=== PATIENT | female | born 1955 | race Caucasian/White ===

== ENCOUNTER → 2016-12-26 | Outpatient (CLI) | payer MEDICARE, OTHER ==
[~2016-12-26] MED LIST: AMBIEN 10MG10 MG PO; AVAPRO300 MG PO; AVINZA30 M1 PO; B COMPLEX1 TA2 PO; BASE, PCCA POLY1 FLA; BIOFLAX1000 MG PO; CATAPRES 0.1MG0.1 MG PO; COZAAR100 MG PO; ESTRACE PO; FOLIC ACID 11 MG/TA1 PO; KLONOPIN 0.5MG0.5 MG PO; LEVOTHYROXIN0.112 MG PO; LOPID 600M600 MG/TAB PO; LOPRESSOR 225 MG/TAB PO; LORTAB 5/500 501 TAB; MAGOX 400241.3 MG PO; MS CONTIN 115 MG/TAB PO; NASACORT AQ N16.5 GM NS; NORCO 325 MG-101 TAB PO; NYSTATIN 5500 MU/TAB PO; PHENERGAN 25 TA25 MG PO; PREDNISONE10 MG PO; PROAIR HFA0.09 MG/AC IH; UNABLE; VITAMIN D32000 I1 PO; ZYRTEC 10MG10 MG PO; [UNRECOGNIZED DRUG - REMARK]
== END ==
LOC: MC.RAD 11:39
DX: T85.49XA Other mechanical complication of breast prosthesis and implant, initial encounter (principal); R92.1 Mammographic calcification found on diagnostic imaging of breast

== ENCOUNTER → 2017-03-15 | Outpatient (CLI) | payer MEDICARE, OTHER | LOC: MHCPAIN 12:00 | DX: G89.29 Other chronic pain (principal); M47.814 Spondylosis without myelopathy or radiculopathy, thoracic region; M54.16 Radiculopathy, lumbar region | CPT/HCPCS: G0463 ==

== ENCOUNTER → 2017-07-03 | Outpatient (CLI) | payer MEDICARE, OTHER | LOC: MC.RAD 13:00 | DX: T85.49XA Other mechanical complication of breast prosthesis and implant, initial encounter (principal); Z90.12 Acquired absence of left breast and nipple; Z98.82 Breast implant status ==

== ENCOUNTER → 2020-05-22 | Outpatient (CLI) | payer MEDICARE, OTHER | LOC: COL.RAD 09:00 | DX: R10.84 Generalized abdominal pain (principal); R93.89 Abnormal findings on diagnostic imaging of other specified body structures; Z90.49 Acquired absence of other specified parts of digestive tract ==

== ENCOUNTER 2020-06-19 08:39 | Day surgery (SDC) | payer MEDICARE ==
[2020-06-19] VITALS (8 sets, daily range): BP systolic 133–153; BP diastolic 73–88; PULSE 55–78; TEMP 96.9–97.6
[~2020-06-19] VITALS: Ht 162.6 cm; Wt 61.8 kg
[~2020-06-19 08:39] MED LIST changes: +B COMPLEX #11 TA1 PO; -B COMPLEX1 TA2 PO; +MAG-OX 400400 MG/TAB PO; -MAGOX 400241.3 MG PO; +MASON NATURAL2000 IU PO; -VITAMIN D32000 I1 PO
[2020-06-19] MEDS ORDERED: PLAVIX 75MG TAB75 MG PO (08:59)
[2020-06-19] MEDS ORDERED: LEVOXYL0.1 MG PO (09:25)
[2020-06-19] MEDS ORDERED: TOPROL XL 25MG25 MG PO (09:26)
[2020-06-19] MEDS ORDERED: AMBIEN 5MG TABLE5 MG PO (09:26)
[2020-06-19] MEDS ORDERED: CRESTOR5 MG PO (09:27)
[2020-06-19] MEDS ORDERED: REPATHA SU140 MG/1 M SQ (09:29)
--- NOTE | 2020-06-19 12:05 | NUR ---
Patient was received by Marquita Elder RN. VSS on room air.
--- NOTE | 2020-06-19 12:29 | NUR ---
Dr. Vilchis is at the bedside at this time.
--- NOTE | 2020-06-19 12:30 | NUR ---
Patient is resting comfortably in her room. She has some chronic pain in her extremities that Dr. Vilchis orders her home medications to help with. These are given to her. She also has mild epigastric pain, which Dr. Vilchis is made aware of. No nausea or other complaints. SHe is sipping water.
--- NOTE | 2020-06-19 12:40 | NUR ---
Patient ambulates to the restroom with steady gait. Voids and returns to room.
--- NOTE | 2020-06-19 13:00 | NUR ---
Patient is resting comfortably in room. She denies pain, nausea, or need.
--- NOTE | 2020-06-19 13:30 | NUR ---
Patient requests to walk. She ambulates up and down the hallway with staff. Her gait is steady. IVF are saline locked. She returns to her room.
--- NOTE | 2020-06-19 13:49 | NUR ---
The patient had some questions regarding procedure. Dr. Vilchis is notified and comes to the bedside to discuss with patient.
--- NOTE | 2020-06-19 14:00 | NUR ---
Patient ambulates to the restroom to void. She then walks the halls with staff. Returns to room and would like to change to her clothing. Given broth and stepan.
--- NOTE | 2020-06-19 14:35 | NUR ---
Report given to DAYAMI Juárez who assumes care at this time.
--- NOTE | 2020-06-19 15:00 | NUR ---
PATIENT TEXTING ON PHONE. REQUESTED TO GO HOME EARLY. PATIENT STATED " I FEEL FINE"
--- NOTE | 2020-06-19 15:15 | NUR ---
OK'D BY DR GTZ TO GO HOME EARLY. RECEIVED DISCHARGE INSTRUCTIONS AND VERBALIZED UNDERSTANDING. DISCONTINUED IV AND INT- CATHETER INTACT.
--- NOTE | 2020-06-19 15:35 | NUR ---
DISCHARGED PER WC BY NURSING STAFF TO PRIVATE CAR IN CARE OF [facility].
== END 2020-06-19 15:55 | disposition home or self-care (01) ==
LOC: SDCO 08:39
DX: K83.8 Other specified diseases of biliary tract (principal); K31.89 Other diseases of stomach and duodenum; R93.2 Abnormal findings on diagnostic imaging of liver and biliary tract; I25.10 Atherosclerotic heart disease of native coronary artery without angina pectoris; G43.909 Migraine, unspecified, not intractable, without status migrainosus; E78.00 Pure hypercholesterolemia, unspecified; I10 Essential (primary) hypertension; J45.909 Unspecified asthma, uncomplicated; K21.9 Gastro-esophageal reflux disease without esophagitis; G89.29 Other chronic pain; M19.90 Unspecified osteoarthritis, unspecified site; E03.9 Hypothyroidism, unspecified; R10.9 Unspecified abdominal pain; M79.7 Fibromyalgia; Z90.49 Acquired absence of other specified parts of digestive tract; Z79.82 Long term (current) use of aspirin; Z79.02 Long term (current) use of antithrombotics/antiplatelets; Z90.710 Acquired absence of both cervix and uterus; Z87.891 Personal history of nicotine dependence; Z86.711 Personal history of pulmonary embolism; Z20.828 Contact with and (suspected) exposure to other viral communicable diseases; Z95.5 Presence of coronary angioplasty implant and graft; Z88.6 Allergy status to analgesic agent; Z91.040 Latex allergy status; Z91.011 Allergy to milk products; Z88.5 Allergy status to narcotic agent
CPT/HCPCS: C1769; J2704; J7120; Q9967

== ENCOUNTER → 2020-07-30 | Outpatient (CLI) | payer MEDICARE ==
[~2020-07-30] MED LIST changes: +AMBIEN 5MG TABLE5 MG PO; +CRESTOR5 MG PO; +LEVOXYL0.1 MG PO; +PLAVIX 75MG TAB75 MG PO; +REPATHA SU140 MG/1 M SQ; +TOPROL XL 25MG25 MG PO
== END ==
LOC: MC.RAD 13:26
DX: Z12.31 Encounter for screening mammogram for malignant neoplasm of breast (principal)

== ENCOUNTER → 2021-03-22 | Outpatient (CLI) | payer MEDICARE ==
[2021-03-22 08:35] LABS: HEMOGLOBIN 13.8 g/dl (12.5-16.0); MEAN CELL VOLUME 92 fl (80.0-100.0); MEAN CORPUSCULAR HEMOGLOBIN 30 pg (27.0-31.0); MEAN CORPUSCULAR HGB CONC 33 g/dl (33.0-37.0); MEAN PLATELET VOLUME 8.6 fl (7.4-10.4); PLATELET COUNT 267 K/mm3 (130-400); RED BLOOD COUNT 4.57 M/mm3 (4.10-5.30); REDCELL DISTRIBUTION WIDTH-CV 13.5 % (11.5-14.5)
[2021-03-22 08:45] LABS: CALCIUM 8.9 mg/dL (8.4-10.2); CREATININE, serum 0.64 (0.52-1.25); POTASSIUM 4.2 mmol/L (3.4-5.0)
== END ==
LOC: COL.LAB 08:05
DX: Z01.812 Encounter for preprocedural laboratory examination (principal); I10 Essential (primary) hypertension; Z20.822 Contact with and (suspected) exposure to COVID-19

== ENCOUNTER → 2021-08-20 | Outpatient (CLI) | payer MEDICARE | LOC: MC.RAD 13:42 | DX: Z12.31 Encounter for screening mammogram for malignant neoplasm of breast (principal) ==

== ENCOUNTER → 2023-11-30 | Outpatient (CLI) | payer MEDICARE | LOC: MC.RAD 11-16 10:30 | DX: Z12.31 Encounter for screening mammogram for malignant neoplasm of breast (principal) ==

== ENCOUNTER → 2023-12-08 | Outpatient (CLI) | payer MEDICARE | LOC: MC.RAD 12:54 | DX: N64.89 Other specified disorders of breast (principal) ==

== ENCOUNTER → 2024-06-06 | Outpatient (CLI) | payer MEDICARE, OTHER | LOC: COL.RAD 14:19 | DX: R10.11 Right upper quadrant pain (principal); Z90.49 Acquired absence of other specified parts of digestive tract ==